=== PATIENT | male | born 2000 | race Caucasian/White ===

== ENCOUNTER 2019-02-22 21:20 | Emergency (ER) | payer MEDICAID ==
--- NOTE | 2019-02-22 21:57 | ERPHSYRPT ---
- History of Present Illness Time Seen by Provider: 02/22/19 21:57 Source: patient Exam Limitations: no limitations Patient Subjective Stated Complaint: pt states, "I'm having a bad toothache to upper left side back since 1500 today". Triage Nursing Assessment: pt ambulted to rm 10, alert and oriented x3, pleasant and cooperative. Pt c/o dental pain to lt upper tooth in back since 1500 today. Pt has taken ibu 600 mg at 2000 with no relief, rates pain a 9 on 0 -10 scale. Lungs clear, heart tones reg, abd soft with active bs x4 quad. Physician History: 18 y/o white male presents with recurrent left upper back molar toothache. fractured tooth occurred may 2018. he has intermittent pain. todays pain began at 1500 today. pt took ibuprofen and tylenol for pain without much relief. Timing/Duration: gradual onset, intermittent Severity: mild ENT Location: dental Prearrival Treatment: over the counter meds Associated Symptoms: tooth pain Allergies/Adverse Reactions: No Known Drug Allergies Allergy (Verified 09/06/15 19:08) Hx Tetanus, Diphtheria Vaccination/Date Given: Yes Hx Influenza Vaccination/Date Given: No Hx Pneumococcal Vaccination/Date Given: No Immunizations Up to Date: Yes - Review of Systems Constitutional: No Symptoms Eyes: No Symptoms Ears, Nose, & Throat: Other (dental pain) Respiratory: No Symptoms Cardiac: No Symptoms Abdominal/Gastrointestinal: No Symptoms Genitourinary Symptoms: No Symptoms Musculoskeletal: No Symptoms Skin: No Symptoms Neurological: No Symptoms Psychological: No Symptoms Endocrine: No Symptoms Hematologic/Lymphatic: No Symptoms Immunological/Allergic: No Symptoms All Other Systems: Reviewed and Negative - Past Medical History Pertinent Past Medical History: No Neurological History: No Pertinent History ENT History: No Pertinent History Cardiac History: No Pertinent History Respiratory History: No Pertinent History Endocrine Medical History: No Pertinent History Musculoskeletal History: No Pertinent History GI Medical History: No Pertinent History History: No Pertinent History Psycho-Social History: No Pertinent History Male Reproductive Disorders: No Pertinent History - Past Surgical History Past Surgical History: No - Social History Smoking Status: Current every day smoker How long have you smoked: 2 yrs Exposure to second hand smoke: No Drug Use: none Patient Lives Alone: Yes - Nursing Vital Signs Nursing Vital Signs: Initial Vital Signs Temperature 98.0 F 02/22/19 21:56 Pulse Rate 70 02/22/19 21:56 Respiratory Rate 15 02/22/19 21:56 Blood Pressure 127/81 02/22/19 21:56 O2 Sat by Pulse Oximetry 100 02/22/19 21:56 Pain Scale Pain Intensity 9 - Physical Exam General Appearance: no apparent distress, alert Eye Exam: bilateral eye: normal inspection, PERRL, EOMI Ear Exam: bilateral ear: auricle normal Nasal Exam: normal inspection Throat Exam: dental tenderness (left upper back molar dental fx) Neck Exam: normal inspection, non-tender, supple, full range of motion, trachea midline Cardiovascular/Respiratory Exam: chest non-tender Abdominal Exam: non-tender Neurologic Exam: alert, oriented x 3, cooperative, twisthand II-XII nml as tested Skin Exam: normal color, warm, dry SpO2 Interpretation: normal SpO2: 100 O2 Delivery: Room Air Ordered Tests: Medication Summary Discontinued Medications Generic Name Dose Route Start Last Admin Trade Name Freq PRN Reason Stop Dose Admin Amoxicillin 500 mg 02/22/19 22:25 02/22/19 22:31 Amoxil 500 Mg PO 02/22/19 22:26 500 mg STAT ONE Administration - Progress Progress: unchanged Counseled pt/family regarding: diagnosis, need for follow-up - Departure Departure Disposition: Home Clinical Impression: Tooth fracture, Pain, dental Condition: Stable Critical Care Time: No Referrals: TARA BERMUDEZ [Primary Care Provider] - Additional Instructions: follow up with dentist for definitive care. tylenol and ibuprofen for pain. Prescriptions: Amoxicillin 500 mg Cap [Amoxil 500 mg] 500 mg PO TID #30 capsule
[2019-02-22] MEDS ORDERED: AMOXIL 500 MG PO ONE (22:25)
[2019-02-22 23:01] VITALS: BP 114/65; PULSE 50; O2SAT 98
== END 2019-02-22 23:00 | disposition home or self-care (01) ==
LOC: ED 21:20
DX: S02.5XXS Fracture of tooth (traumatic), sequela (principal); K08.89 Other specified disorders of teeth and supporting structures
CPT/HCPCS: 99283; A9270-GY

== ENCOUNTER 2019-04-01 15:47 | Emergency (ER) | payer SELFPAY ==
--- NOTE | 2019-04-01 15:58 | ERPHSYRPT ---
- History of Present Illness Time Seen by Provider: 04/01/19 15:58 Historian: patient Exam Limitations: no limitations Physician History: acute onset of periumbilical abdominal pain started today at noon. Timing/Duration: today Activities at Onset: none Quality: burning Abdominal Pain Onset Location: periumbilical Pain Radiation: no radiation Severity of Pain-Max: moderate Severity of Pain-Current: moderate Modifying Factors: Improves With: nothing Associated Symptoms: nausea Previous symptoms: no prior history Allergies/Adverse Reactions: No Known Drug Allergies Allergy (Verified 09/06/15 19:08) Hx Tetanus, Diphtheria Vaccination/Date Given: Yes Hx Influenza Vaccination/Date Given: No Hx Pneumococcal Vaccination/Date Given: No - Review of Systems Constitutional: No Fever, No Chills Eyes: No Symptoms Ears, Nose, & Throat: No Symptoms Respiratory: No Cough, No Dyspnea Cardiac: No Chest Pain, No Edema, No Syncope Abdominal/Gastrointestinal: Abdominal Pain, Nausea, No Vomiting, No Diarrhea Genitourinary Symptoms: No Dysuria Musculoskeletal: No Back Pain, No Neck Pain Skin: No Rash Neurological: No Dizziness, No Focal Weakness, No Sensory Changes Psychological: No Symptoms Endocrine: No Symptoms All Other Systems: Reviewed and Negative - Past Medical History Pertinent Past Medical History: No Neurological History: No Pertinent History ENT History: No Pertinent History Cardiac History: No Pertinent History Respiratory History: No Pertinent History Endocrine Medical History: No Pertinent History Musculoskeletal History: No Pertinent History GI Medical History: No Pertinent History History: No Pertinent History Psycho-Social History: No Pertinent History Male Reproductive Disorders: No Pertinent History - Past Surgical History Past Surgical History: No - Social History Smoking Status: Current every day smoker How long have you smoked: 2 yrs Exposure to second hand smoke: No Drug Use: none Patient Lives Alone: Yes - Nursing Vital Signs Nursing Vital Signs: Initial Vital Signs Temperature 97.8 F 04/01/19 15:53 Pulse Rate 52 L 04/01/19 15:53 Respiratory Rate 16 04/01/19 15:53 Blood Pressure 128/57 04/01/19 15:53 O2 Sat by Pulse Oximetry 100 04/01/19 15:53 Pain Scale Pain Intensity 0 - Physical Exam General Appearance: no apparent distress, alert Eye Exam: PERRL/EOMI, eyes nml inspection Ears, Nose, Throat Exam: normal ENT inspection, pharynx normal, moist mucous membranes Neck Exam: normal inspection, non-tender, supple, full range of motion Respiratory Exam: normal breath sounds, lungs clear, No respiratory distress Cardiovascular Exam: regular rate/rhythm, normal heart sounds, normal peripheral pulses Gastrointestinal/Abdomen Exam: soft, normal bowel sounds, No tenderness, No distention, No mass, No guarding, No ecchymosis, No pulsatile mass, No rebound, No hernia, No hepatomegaly, No organomegaly, No splenomegaly Back Exam: normal inspection, normal range of motion, No CVA tenderness, No vertebral tenderness Extremity Exam: normal inspection, normal range of motion, pelvis stable Neurologic Exam: alert, oriented x 3, cooperative, normal mood/affect, nml cerebellar function, sensation nml, No motor deficits Skin Exam: normal color, warm, dry - Course Nursing assessment & vital signs reviewed: Yes Ordered Tests: Active Orders 24 hr Category Date Time Status IV Insertion STAT Care 04/01/19 16:03 Active NPO (ED) STAT Care 04/01/19 16:03 Active ABDOMEN AND PELVIS W CONTRAST [CT] Stat Exams 04/01/19 16:03 Taken CBC W DIFF Stat Lab 04/01/19 16:10 Completed CMP Stat Lab 04/01/19 16:10 Completed LIPASE Stat Lab 04/01/19 16:10 Completed UA W/RFX UR CULTURE Stat Lab 04/01/19 17:16 Received Urine Triage Profile Stat Lab 04/01/19 17:16 Received Medication Summary Discontinued Medications Generic Name Dose Route Start Last Admin Trade Name Freq PRN Reason Stop Dose Admin Sodium Chloride 1,000 mls @ 999 mls/hr 04/01/19 16:03 04/01/19 17:19 Sodium Chloride 0.9% 1000 Ml IV 04/01/19 17:03 Infused .Q1H1M STA Infusion Sodium Chloride Confirm 04/01/19 16:14 Sodium Chloride 0.9% 1000 Ml Administered 04/01/19 16:15 Dose 1,000 mls @ ud .ROUTE .[facility]-MED ONE Ondansetron HCl 4 mg 04/01/19 16:03 04/01/19 16:18 Zofran 4 Mg/2 Ml Vial IV 04/01/19 16:04 4 mg STAT ONE Administration Ondansetron HCl Confirm 04/01/19 16:14 Zofran 4 Mg/2 Ml Vial Administered 11/29/19 16:15 Dose 4 mg .ROUTE .[facility]-MED ONE Lab/Rad Data: Laboratory Result Diagrams 04/01/19 16:10 04/01/19 16:10 Laboratory Results 04/01/19 04/01/19 Range/Units 16:10 16:10 WBC 8.0 (4.0-10.5) K/mm3 RBC 5.14 (4.1-5.6) M/mm3 Hgb 13.9 (12.5-18.0) gm/dl Hct 43.3 (42-50) % MCV 84.2 (78-100) fl MCH 27.0 (26-32) pg MCHC 32.1 (32-36) g/dl RDW 13.7 (11.5-14.0) % Plt Count 203 (150-450) K/mm3 MPV 9.9 H (6-9.5) fl Gran % 39.1 (36.0-66.0) % Eos # (Auto) 0.39 (0-0.5) Absolute Lymphs (auto) 3.61 (1.0-4.6) Absolute Monos (auto) 0.81 (0.0-1.3) Lymphocytes % 45.4 H (24.0-44.0) % Monocytes % 10.2 (0.0-12.0) % Eosinophils % 4.9 (0.00-5.0) % Basophils % 0.4 (0.0-0.4) % Absolute Granulocytes 3.11 (1.4-6.9) Basophils # 0.03 (0-0.4) Sodium 141 (137-145) mmol/L Potassium 4.3 (3.5-5.1) mmol/L Chloride 103 (98-107) mmol/L Carbon Dioxide 32 H (22-30) mmol/L Anion Gap 10.3 (5-15) MEQ/L BUN 10 (9-20) mg/dL Creatinine 0.97 (0.66-1.25) mg/dL Estimated GFR > 60.0 ML/MIN Glucose 65 L (74-106) mg/dL Calcium 9.8 (8.4-10.2) mg/dL Total Bilirubin 0.50 (0.2-1.3) mg/dL AST 23 (17-59) U/L ALT 22 (0-50) U/L Alkaline Phosphatase 43 (38-126) U/L Serum Total Protein 7.0 (6.3-8.2) g/dL Albumin 4.4 (3.5-5.0) g/dL Lipase 25 (23-300) U/L - Progress Progress: improved, re-examined Progress Note: 04/01/19 16:51 I called [facility] 04/01/19 17:21 I spoke with Surgeon Dr. Groves and discussed CT report. He agreed to take the appendix out. I discussed this with pt in presence of RN and also his girlfriend. Pt refused. He understood the risk, including the risk of . He wants to go home and agreed to come back in case of emergency or new symptoms or worsening symptoms. Pt stable. Discussed with Dr.: Other (Dr. Groves) Will see patient in: other (Agreed to take appendix out) Counseled pt/family regarding: diagnosis, need for follow-up - Departure Departure Disposition: Home, AMA Clinical Impression: Abdominal pain Qualifiers: Abdominal location: periumbilical Qualified Code(s): R10.33 - Periumbilical pain Condition: Stable Critical Care Time: No Referrals: TARA BERMUDEZ [Primary Care Provider] - (Return to ER tomorrow for recheck ) Instructions: Acute Abdomen (Belly Pain) Prescriptions: Amoxicillin 500 mg PO TID 7 Days #21 tablet
[2019-04-01] MEDS ORDERED: Sodium Chloride 0.9% 1000 ML 1,000 ML IV STA (16:03)
[2019-04-01] MEDS ORDERED: Zofran 4 MG/2 ML VIAL IV ONE (16:03)
[2019-04-01] MEDS ORDERED: Zofran 4 MG/2 ML VIAL ONE (16:14)
[2019-04-01] MEDS ORDERED: Sodium Chloride 0.9% 1000 ML 1,000 ML ONE (16:14)
[2019-04-01 16:20] LABS: Absolute Neutrophil Ct (ANC) 3.11 (1.4-6.9); BASOPHIL % 0.4 % (0.0-0.4); Basophil (Absolute #) 0.03 (0-0.4); Eosinophil % 4.9 % (0.00-5.0); Eosinophil (Absolute #) 0.39 (0-0.5); Hematocrit 43.3 % (42-50); Hemoglobin 13.9 gm/dl (12.5-18.0); Lymphocyte (Absolute #) 3.61 (1.0-4.6); Lymphocytes % 45.4 % (24.0-44.0); Mean Cell Volume 84.2 fl (78-100); Mean Corpuscular Hgb Concent. 32.1 g/dl (32-36); Mean Platelet Volume 9.9 fl (6-9.5); Monocyte (Absolute #) 0.81 (0.0-1.3); Monocytes % 10.2 % (0.0-12.0); Neutrophil % 39.1 % (36.0-66.0); Platelet Count 203 K/mm3 (150-450); Red Blood Count 5.14 M/mm3 (4.1-5.6); Red Cell Distribution Width 13.7 % (11.5-14.0)
[2019-04-01 16:41] LABS: ALBUMIN 4.4 g/dL (3.5-5.0); ALKALINE PHOSPHATASE 43 U/L (38-126); ANION GAP 10.3 MEQ/L (5-15); BLOOD UREA NITROGEN 10 mg/dL (9-20); CHLORIDE 103 mmol/L (98-107); Calcium 9.8 mg/dL (8.4-10.2); Carbon Dioxide 32 mmol/L (22-30); Creatinine 1 0.97 mg/dL (0.66-1.25); Glucose 65 mg/dL (74-106); LIPASE 25 U/L (23-300); Potassium 4.3 mmol/L (3.5-5.1); SGOT/AST 23 U/L (17-59); SGPT/ALT 22 U/L (0-50); SODIUM 141 mmol/L (137-145)
[2019-04-01 17:07] VITALS: O2SAT 99
[2019-04-01] MEDS ORDERED: ROCEPHIN 1 Gm-D5w 50 ml Bag** 1 G/50 ML IVPB IV ONE (17:22)
[2019-04-01] MEDS ORDERED: ROCEPHIN 1 Gm-D5w 50 ml Bag** 1 G/50 ML IVPB IV STA (17:25)
[2019-04-01 17:27] LABS: Appearance CLEAR (CLEAR); Bilirubin NEGATIVE (NEGATIVE); Blood NEGATIVE Ery/ul (0-5); Glucose NEGATIVE (NEGATIVE); Ketones NEGATIVE (NEGATIVE); Leukocyte Esterase NEGATIVE (NEGATIVE); Mucus SLIGHT /HPF (NEGATIVE); Nitrite NEGATIVE (NEGATIVE); Protein,Urine Dip NEGATIVE (Negative); Specific Gravity 1.048 (1.005-1.025); Urobilinogen NEGATIVE mg/dL (0-1)
[2019-04-01 17:30] LABS: Amphetamine,Urine NEGATIVE (NEGATIVE); Barbiturate,Urine NEGATIVE (NEGATIVE); Benzodiazepine,Urine NEGATIVE (NEGATIVE); Cocaine,Urine NEGATIVE (NEGATIVE); Methadone,Urine NEGATIVE (NEGATIVE); Opiate,Urine NEGATIVE (NEGATIVE); PCP,Urine NEGATIVE (NEGATIVE); THC,Urine POSITIVE (NEGATIVE)
[2019-04-01 17:50] VITALS: BP 97/76; PULSE 52
--- NOTE | 2019-04-01 19:51 | XRAY ---
Indication: Lower abdomen pain. Multiple contiguous axial images obtained through the abdomen and pelvis using 80 cc Isovue 370 contrast only. Comparison: None Lung bases are clear. Heart is not enlarged. Stomach is distended with food/fluid. Noncontrasted stomach and bowel loops appear nonobstructed. Normal appendix. No free fluid/air. Both kidneys enhance and excrete with 5 mm right mid renal cyst.. Spleen is enlarged measuring 13.3 cm in greatest axial dimension. Remaining liver, gallbladder, pancreas, spleen, adrenal glands, kidneys, ureters, bladder, and aorta appear unremarkable. No pathologic retroperitoneal lymphadenopathy. Osseous structures intact. Impression: Splenomegaly and tiny right renal cyst. Remaining CT abdomen/pelvis with contrast exam is negative. Comment: Preliminary interpretation was made by C. No critical discrepancy. CTDI 3.94
== END 2019-04-01 17:48 | disposition home or self-care (01) ==
LOC: ED 15:47
DX: R10.33 Periumbilical pain (principal)
CPT/HCPCS: 36000; 36415; 74177; 80053; 80307; 81001; 83690; 85025; 96360; 96365; 96374; 99284; J0696; J2405